=== PATIENT | male | born 1955 | race Caucasian/White ===

== ENCOUNTER 2017-03-11 21:36 | Emergency (ER) | payer OTHER ==
[~2017-03-11] VITALS: Ht 185.4 cm; Wt 120.2 kg
[~2017-03-11 21:36] MED LIST: ACETAMINOPHEN325 M1 PO; ALLEGRA-D 24 H1 EACH PO; ATORVASTATIN CA20 MG PO; CIPROFLOXACIN500 MG PO; FLUTICASONE PRO16 GM NAS; HUMALOG100 UNIT/2 SUB-Q; IRBESARTAN75 MG PO; LANTUS SOL100 UNIT/1 SUB-Q; PROVENTIL HFA6.7 GM INH; QVAR7.3 G1 INH; TAMSULOSIN HCL0.4 MG PO; VENTOLIN HFA18 GM INH; XANAX0.25 MG PO; ZITHROMAX250 MG PO
== END 2017-03-12 01:03 | disposition home or self-care (01) ==
LOC: ED 21:36
DX: J20.9 Acute bronchitis, unspecified (principal); E11.9 Type 2 diabetes mellitus without complications; I10 Essential (primary) hypertension; E78.00 Pure hypercholesterolemia, unspecified; G47.30 Sleep apnea, unspecified; Z96.653 Presence of artificial knee joint, bilateral; Z90.89 Acquired absence of other organs; Z95.810 Presence of automatic (implantable) cardiac defibrillator; Z88.6 Allergy status to analgesic agent; Z88.5 Allergy status to narcotic agent; Z79.4 Long term (current) use of insulin; Z79.899 Other long term (current) drug therapy
CPT/HCPCS: 99283